=== PATIENT | female | born 1980 | race Caucasian/White ===

== ENCOUNTER 2018-07-01 08:22 | Outpatient (RCR) | payer OTHER ==
[2018-06-16 08:40] VITALS: BP 122/79
--- NOTE | 2018-06-16 16:28 | ONCOLOGY CONSULTATION ---
EVENT DATE: June 16, 2018 REFERRING PHYSICIAN Flo Feldman MD REASON FOR CONSULTATION Evaluation and management of prolonged PTT with excessive menses. HEMATOLOGY HISTORY Patient is a 38-year-old female who presented with excessive menses for the last year. She denies any bleeding gums, but she has also excessive bruising. Patient is using Advil nearly twice per week. She has been seen by Dr. Vergara , who did some testing with PT/PTT, and her PTT was prolonged at 41. Her CBC showed a high platelet count of 396,000. Patient had two C-sections in the past without any bleeding problems. She denies any family history of excessive bleeding. PAST MEDICAL HISTORY 1. Anxiety. 2. Trigeminal neuralgia. 3. Hypothyroidism. PAST SURGICAL HISTORY C-sections times two. FAMILY HISTORY Negative for cancer, blood diseases, or bleeding disorder. SOCIAL HISTORY Patient is with two children. 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 Denies any abuse of tobacco or illicit drugs. CURRENT MEDICATIONS 1. Levothyroxine 50 mcg daily. 2. Fluoxetine 20 mg daily. 3. Gabapentin 300 mg twice daily. ALLERGIES No known drug allergies. REVIEW OF SYSTEMS CONSTITUTIONAL: No appetite or weight change. No fever, chills or sweating. No recent infection. HEENT: Ears: No tinnitus or hearing problem. Nose: No nasal discharge or epistaxis. Throat: No sore throat or mouth ulcers. Eyes: No diplopia or visual changes. RESPIRATORY: Patient has some dry cough. CARDIOVASCULAR: No chest pain, orthopnea, or paroxysmal nocturnal dyspnea (PND) . No edema. No palpitations. GASTROINTESTINAL: No nausea or vomiting. No diarrhea. She has constipation. No change in bowel movements. No heartburn or swallowing difficulties. No abdominal pain. No jaundice. No hematemesis, melena or rectal bleeding. GENITOURINARY: No hematuria or dysuria. MUSCULOSKELETAL: No pain in the muscles, joints or bones. NEUROLOGICAL: She has positional tingling and numbness sometimes. She has occasional headache. HEMATOLOGIC: She bruises easily. She has had heavy periods for the last year. She is also weak, tired, and fatigued. SKIN: No skin rash or lumps. PSYCHIATRIC: No anxiety or depression. PHYSICAL EXAMINATION GENERAL: Looks stable. Well developed, well nourished, and in no acute distress. VITAL SIGNS: Blood pressure 122/79, pulse 72 per minute, respirations 16 per minute, temperature 97.4, pulse ox 96% on room air. HEENT: Head: Atraumatic. No sinus tenderness to palpation. Eyes: No icterus or conjunctivitis. Mouth and throat: No oral thrush or mucositis. NECK: Supple. No cervical or supraclavicular lymphadenopathy. LUNGS: Clear to auscultation and percussion bilaterally. HEART: Regular rate and rhythm. No gallops, murmurs, clicks, or rubs. ABDOMEN: Soft and lax. No tenderness. No hepatosplenomegaly. No masses. EXTREMITIES: No cyanosis, clubbing, or edema. LYMPHATICS: No peripheral lymphadenopathy. NEUROLOGICAL: Conscious, alert, and oriented times three. No focal motor or sensory deficits. PSYCHIATRIC: Mood and affect appear normal. SKIN: No skin rash, bruise, or purpuric eruption. ASSESSMENT Excessive bruising with heavy periods for the last year with prolonged PTT at 41. Prolonged PTT sometimes could be false due to disproportion between anticoagulant with a sample taken. I am planning to repeat her PTT, and if it remains prolonged, I am planning to do a mixing study for PTT to differentiate between a factor inhibitor and a factor deficiency. I am planning also to run the screening for von Willebrand disease. I am planning to check the von Willebrand factor antigen, factor VIII activity, and factor VIII ristocetin cofactor activity. I am planning also to check her CBC. I will see her again after that for further evaluation and management. If the PTT is normal, most probably her excessive bruising and periods could be related to her Advil use. I spent a long time with the patient and her explaining those issues, and they are agreeable with the plan of management. PLAN 1. CBC. 2. PTT. 3. PTT mixing study if the PTT is prolonged. 4. von Willebrand antigen. 5. Factor VIII activity. 6. Ristocetin cofactor VIII activity. 7. Patient to return in one week for further evaluation and management. 8. Patient to contact us for any new concerns or complaints. SADIA
[2018-06-17 15:37] VITALS: BP 131/76
[2018-06-17 15:51] LABS: PLATELET COUNT, AUTOMATED 400 K/uL (150-450)
[~2018-07-01 08:22] MED LIST: FLUO-177 PO; GABA-549 PO; LEVO50TA86 PO
[2018-07-01 08:30] VITALS: BP 123/81
[2018-07-01 09:43] LABS: INR 0.96
--- NOTE | 2018-07-01 12:01 | [facility] ONCOLOGY NOTE ---
EVENT DATE: July 01, 2018 DIAGNOSIS Prolonged PTT. CHIEF COMPLAINT Patient is here today for followup of her prolonged PTT with heavy period. HEMATOLOGY HISTORY Patient is a 38-year-old female who presented with excessive menses for the last year. She denies any bleeding gums, but she has also excessive bruising. Patient is using Advil nearly twice per week. She has been seen by Dr. Vergara , who did some testing with PT/PTT, and her PTT was prolonged at 41. Her CBC showed a high platelet count of 396,000. Patient had two C-sections in the past without any bleeding problems. She denies any family history of excessive bleeding. CBC showed white count of 11.7, hemoglobin 14.3, hematocrit 41.4, platelet 400,000. PTT was prolonged at 54 and mixing study was suggestive of factor deficiency. Factor VIII activity and von Willebrand ristocetin cofactor activity both came back normal. HISTORY OF PRESENT ILLNESS Patient is here today for followup of her heavy period with prolonged PTT. She continues to have heavy periods. She developed hives recently and resolved with antihistamines. Other than that, she is doing very well. PAST MEDICAL HISTORY 1. Anxiety. 2. Trigeminal neuralgia. 3. Hypothyroidism. PAST SURGICAL HISTORY C-sections times two. FAMILY HISTORY Negative for cancer, blood diseases, or bleeding disorder. SOCIAL HISTORY Patient is with two children. 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 Denies any abuse of tobacco or illicit drugs. CURRENT MEDICATIONS 1. Levothyroxine 50 mcg daily. 2. Fluoxetine 20 mg daily. 3. Gabapentin 300 mg twice daily. ALLERGIES No known drug allergies. REVIEW OF SYSTEMS CONSTITUTIONAL: No appetite or weight change. No fever, chills or sweating. No recent infection. HEENT: Ears: No tinnitus or hearing problem. Nose: No nasal discharge or epistaxis. Throat: No sore throat or mouth ulcers. Eyes: No diplopia or visual changes. RESPIRATORY: Patient has some dry cough. CARDIOVASCULAR: No chest pain, orthopnea, or paroxysmal nocturnal dyspnea (PND) . No edema. No palpitations. GASTROINTESTINAL: No nausea or vomiting. No diarrhea. She has constipation. No change in bowel movements. No heartburn or swallowing difficulties. No abdominal pain. No jaundice. No hematemesis, melena or rectal bleeding. GENITOURINARY: She has heavy periods. MUSCULOSKELETAL: No pain in the muscles, joints or bones. NEUROLOGICAL: She has positional tingling and numbness sometimes. She has occasional headache. HEMATOLOGIC: She bruises easily. She has had heavy periods for the last year. She is also weak, tired, and fatigued. SKIN: She had hives, which resolved with antihistamines. PSYCHIATRIC: No anxiety or depression. PHYSICAL EXAMINATION GENERAL: Looks stable. Well developed, well nourished, and in no acute distress. VITAL SIGNS: Blood pressure 123/81, pulse 75 per minute, respirations 16 per minute, temperature 98.8, pulse ox 94% on room air. HEENT: Head: Atraumatic. No sinus tenderness to palpation. Eyes: No icterus or conjunctivitis. Mouth and throat: No oral thrush or mucositis. NECK: Supple. No cervical or supraclavicular lymphadenopathy. LUNGS: Clear to auscultation and percussion bilaterally. HEART: Regular rate and rhythm. No gallops, murmurs, clicks, or rubs. ABDOMEN: Soft and lax. No tenderness. No hepatosplenomegaly. No masses. EXTREMITIES: No cyanosis, clubbing, or edema. LYMPHATICS: No peripheral lymphadenopathy. NEUROLOGICAL: Conscious, alert, and oriented times three. No focal motor or sensory deficits. PSYCHIATRIC: Mood and affect appear normal. SKIN: No skin rash, bruise, or purpuric eruption. DIAGNOSTIC DATA CBC shows white count 11.7, hemoglobin 14.3, hematocrit 41.4, platelets 400, 000. Factor 8 activity was normal at 96% and von Willebrand factor ristocetin cofactor activity was normal at 67%. Mixing study was 54 at baseline and normalized at 45 after mixing with normal plasma. After one hour incubation, it remains normal at 44 seconds, meaning that there is factor deficiency rather than inhibitor. ASSESSMENT Prolonged PTT with mixing study for PTT suggestive of factor deficiency. Factor VIII activity and von Willebrand factor ristocetin cofactor activity came back normal. I am planning to check the PT also. If the PT is normal, then I am planning to check the activity of factor XII, XI and IX but if the PT is prolonged then I am planning to check the factor VII and V and fibrinogen and factor X. I explained that to the patient and she is agreeable to the plan of management. I am planning to check first the PT. If it is prolonged then I will do factor activity but if it is normal then I will do factor activity for XII, XI and IX. I will see her in a week for further evaluation and management. PLAN 1. Check PT. 2. Check coagulation factor activities based on the result of the PT. 3. The patient will return in one week for further evaluation and management. 4. The patient is to contact us for a new concerns or complaints. SADIA
== END 2018-09-13 ==
LOC: ONC 08:22
PROVIDERS: ATTEND Internal Medicine Hematology
DX: N92.0 Excessive and frequent menstruation with regular cycle (principal); E03.9 Hypothyroidism, unspecified; G50.0 Trigeminal neuralgia; F41.9 Anxiety disorder, unspecified; M79.81 Nontraumatic hematoma of soft tissue; R79.1 Abnormal coagulation profile
CPT/HCPCS: 36415; 85025; 85240; 85245; 85250; 85270; 85280; 85610; 85730; 85732; 99202; 99212

== ENCOUNTER → 2018-11-30 | Outpatient (CLI) | payer OTHER ==
[~2018-11-30] MED LIST changes: +GADOBENATE 529MG/1ML 15ML VIAL IVP ONE
--- NOTE | 2018-11-30 08:10 | RADIOLOGY IMAGING REPORT ---
[place]AC[place] [facility] [place] NAME: Lucina Marie : 1980 MR: [id number] V: [id number] EXAM DATE: ORDERING PHYSICIAN: [facility] TECHNOLOGIST: Location: [facility] - [place] Patient: Lucina Marie : 1980 Visit/Account:[id number] Date of Sevice: 11/30/2018 Single view of the orbits INDICATION: Pre-MRI. Evaluate for radiopaque foreign body. FINDINGS: Single Boyd' view was obtained of the skull. No evidence of radiopaque foreign body over lying the bilateral orbits. The visualized paranasal sinuses appear patent. No acute osseous abnorm ality identified. IMPRESSION: No evidence of radiopaque foreign body overlying the orbits. Report Dictated By: Cesario Car at 11/30/2018 8:04 AM Report E-Signed By: Cesario Car at 11/30/2018 8:05 AM WSN:[id number]
--- NOTE | 2018-11-30 09:58 | RADIOLOGY IMAGING REPORT ---
FACILITY: [facility] PATIENT NAME: Lucina Marie : 1980 MR: [id number] V: [id number] EXAM DATE: ORDERING PHYSICIAN: [facility] TECHNOLOGIST: Location: [facility] Patient: Lucina Marie : 1980 Visit/Account:[id number] Date of Sevice: 11/30/2018 MR BRAIN/BRAIN STEM W/ & W/O CON Comparisons: None. Additional pertinent history: Tinnitus TECHNIQUE: Multiplanar, multisequence brain MRI was performed with and without gadolinium contrast. Dedicated thin section imaging was performed through the internal auditory canals with axial and cor onal imaging. CONTRAST: 15 ml of MultiHance. FINDINGS: Sagittal midline structures and craniocervical junction: Negative. Midline shift: None. Ventricles: Negative. Brain parenchyma: Diffusion weighted imaging: Negative. Gradient sequence: Negative. T2 weighted FLAIR images: Negative. Dedicated imaging through the internal auditory canals: Seventh and eighth cranial nerves: Negative. Semicircular canals/cochlea: Negative Fifth cranial nerves/Meckel's caves: Negative Cerebellopontine angles: Negative Pathologic enhancement: Negative Extra-axial spaces: Negative. Dural venous sinuses and major arterial flow voids: Negative. Intracranial enhancement: Negative.. Mastoid air cells and paranasal sinuses: Negative. Surrounding soft tissues and orbits: Negative. Impression: 1. Normal brain MRI with and without contrast. 2. Normal imaging of the internal auditory canals. Report Dictated By: Devin Thompson MD at 11/30/2018 9:46 AM Report E-Signed By: Devin Thompson MD at 11/30/2018 9:54 AM WSN:[id number]
== END ==
LOC: MRI 00:48
DX: G50.0 Trigeminal neuralgia (principal); H93.13 Tinnitus, bilateral
CPT/HCPCS: 70030; 70553; A9577

== ENCOUNTER 2019-05-10 01:53 | Day surgery (SDC) | payer OTHER ==
[~2019-05-10] VITALS: Ht 154.9 cm; Wt 66.7 kg
[~2019-05-10 01:53] MED LIST changes: +ETHI1TAB3 PO; -GADOBENATE 529MG/1ML 15ML VIAL IVP ONE; +SCOP1PAT2 TD; +THYROID NP PO
[2019-05-10] MEDS ORDERED: MIDAZOLAM 2 MG/2 ML VIAL IVP PRN (06:30)
[2019-05-10] MEDS ORDERED: FAMOTIDINE 20 MG TAB PO ONE (06:30)
[2019-05-10] MEDS ORDERED: LIDOCAINE/SOD BICARB 8.4% SYR ID ONE (06:30)
[2019-05-10] MEDS ORDERED: NORMOSOL R SOLN(*) 1000 ML BAG 1,000 ML IV PRN (06:30)
[2019-05-10 06:57] VITALS: BP 125/81
[2019-05-10] MEDS ORDERED: PROPOFOL EMUL(*) 10MG/ML 20 ML 20 ML ONE (06:58)
[2019-05-10] MEDS ORDERED: fentaNYL CITR 100 MCG/2 ML AMP ONE ×2 (06:58→08:33)
[2019-05-10] MEDS ORDERED: DEXAMETHASONE SOD PHOS 10MG/ML ONE (06:58)
[2019-05-10] MEDS ORDERED: ONDANSETRON 4 MG/2 ML VIAL ONE (06:58)
[2019-05-10] MEDS ORDERED: LIDOCAINE MPF 1% 5 ML VIAL ONE (06:58)
[2019-05-10] MEDS ORDERED: ePHEDrine 25 MG/5 ML DISP.SYR IVP ONE (07:29)
--- NOTE | 2019-05-10 08:23 | Post Operative Note ---
Operative Note - [employer]NAGER Operative Day Date: May 10, 2019 Time: 08:19 Physicians Surgeon: Dave Anesthesia: Gen LMA Diagnosis Pre-Op Diagnosis: Menorrhagia Post-Op Diagnosis: same Procedure Procedure(s): Novasure ablation Complications: [id number] Fluids Fluids: IV crystalloid Estimated Blood Loss: none Dictated Date OP Note Dictated: May 10, 2019 Time OP Note Dictated: 08:20 Copies to: VICENTE NUNES MD ; VICENTE NUNES MD May 10, 2019 08:23
[2019-05-10] MEDS ORDERED: APAP/HYDROCODONE 325/5 TAB PO PRN (08:25)
[2019-05-10] MEDS ORDERED: LR(*) 1000 ML BAG 1,000 ML IV ONE (08:25)
[2019-05-10] MEDS ORDERED: LOR5/325 PO (08:27)
--- NOTE | 2019-05-10 08:28 | Short(Outpt) Discharge Summary ---
Discharge Summary Reason for Hosp/Final Diag: (1) Menorrhagia Departure Discharge to: Home, Self Care Discharge Instructions Home Meds Active Scripts Hydrocodone Bit/Acetaminophen (HYDROCODON-ACETAMINOPHEN 5-325) 1 Each Tablet, 1 EACH PO Q4-6H PRN for PAIN, #10 TAB 0 Refills Prov:VICENTE NUNES MD 05/10/19 Reported Medications Scopolamine (Transderm-Scop) 1 Mg/3 Day Patch.td.3, 1.5 MG TD ONCE 05/04/19 [Thyroid Managed Care Coordinator] No Conflict Check, 60 MG PO QODAY 05/04/19 Ethinyl Estradiol/Drospirenone (SERGIO 28 TABLET) 1 Each Tablet, 1 EACH PO QDAY, TAB 05/04/19 Gabapentin (GABAPENTIN) 300 Mg Capsule, 300 MG PO TID, CAPSULE 06/16/18 Fluoxetine Hcl (FLUOXETINE HCL) 20 Mg Capsule, 20 MG PO QDAY, CAPSULE 06/16/18 Levothyroxine Sodium (LEVOTHYROXINE SODIUM) 50 Mcg Tablet, 50 MCG PO QDAY, TAB 06/16/18 Follow up Referrals: SENIOR ADVOCATE - In Two Weeks @ [facility] with VICENTE NUNES MD Diet: Regular Activity: As Tolerated, No Heavy Lifting, No Exertion, No Driving Copies to: VICENTE NUNES MD ; Problem Qualifiers (1) Menorrhagia: Menorrahagia type: with irregular cycle Qualified Codes: N92.1 - Excessive and frequent menstruation with irregular cycle VICENTE NUNES MD May 10, 2019 08:28
--- NOTE | 2019-05-10 09:01 | OPERATIVE REPORT 1 ---
EVENT DATE: May 10, 2019 SURGEON: Flo Feldman MD ANESTHESIOLOGIST: Georges Calvillo MD ANESTHESIA: General, LMA PREOPERATIVE DIAGNOSIS 1. Menorrhagia. 2. Excessive and frequent menstruation with irregular cycle. POSTOPERATIVE DIAGNOSIS 1. Menorrhagia. 2. Excessive and frequent menstruation with irregular cycle. PROCEDURE PERFORMED 1. Diagnostic hysteroscopy. 2. NovaSure endometrial ablation. ESTIMATED BLOOD LOSS None. FLUIDS IV crystalloid. FINDINGS Uterus sounded to a depth of 8 cm. Cervical length as measured with the hysteroscope 3 cm making a cavity length of 5.0 cm and a cavity width as measured with the NovaSure device 4.0 cm making a power setting of 110 mccabe, total ablative time 1 minute 17 seconds with a fluid deficit of 115 cc. DESCRIPTION OF PROCEDURE The patient was brought to the operating room with a working IV and placed in the dorsal supine position. She was placed under general LMA anesthesia and moved to the dorsal lithotomy position. She was then prepped and draped in the usual sterile fashion. A weighted speculum was placed in the vagina and the cervix was grasped on the inferior lip with a single-toothed tenaculum. This was carefully sounded to a depth of 8 cm. The cervix was dilated to a size 5 Hegar dilator and the diagnostic hysteroscope was then selected, assembled and using saline as insufflation, passed through the cervix into the uterus and insufflation was then performed. The entire cavity was inspected with a uniform cavity appearance and a tubal ostia without any visible cavity deficits. Measurements were taken. The cervix was then dilated to a size 8 Hegar dilator and the NovaSure device was passed through the cervix into the uterus, fully extended at 5 cm length, rocked about in order to seat the array into the corners of the uterus and a width of 4.0 cm was documented and programed into the NovaSure controller. A cavity assessment was then performed and passed. Therefore, the device was enabled and activated with a total ablative time of 115 seconds before automatic shut off. The device was then removed and diagnostic hysteroscopy was again performed confirming uniform thermal burn throughout the entire endometrial cavity including the tubal ostia and down to the internal os. The procedure was then terminated. All instruments were removed from the vagina and the uterus. She was cleaned up, returned to the dorsal supine position, awakened from general anesthesia in stable condition and taken to recovery. Sponge, lap and instrument counts were all correct x3. MTDD
[2019-05-10 09:22] VITALS: BP 99/70
[2019-05-10 09:40] VITALS: BP 110/74
[2019-05-10 09:44] VITALS: BP 105/96
== END 2019-05-10 09:22 | disposition home or self-care (01) ==
LOC: OR 01:53
PROVIDERS: ATTEND Obstetrics & Gynecology
DX: N92.1 Excessive and frequent menstruation with irregular cycle (principal)
CPT/HCPCS: 36415; 58563; 84703; J1100; J2001; J2405; J2704; J3010